=== PATIENT | female | born 1960 | race African-American/Black ===

== ENCOUNTER 2019-03-28 14:46 | Emergency (ER) | payer SELFPAY ==
[~2019-03-28 14:46] MED LIST: ISOVUE-370 76%-LOCM 1 ML ONE
[2019-03-28 16:13] LABS: Hemoglobin 14.6 g/dL (12.0-16.0); Mean Corpuscular HGB CONC 33.4 g/dL (32.0-36.0); Mean Corpuscular Hemoglobin 30.8 pg (27.0-31.0); Mean Corpuscular Volume 92.4 fL (78.0-98.0); Mean Platelet Volume 7.3 fL (7.4-10.4); Platelet Count 261 thou/uL (130-400); RBC Distribution Width 12.2 % (11.5-14.5); Red Blood Cell (RBC) Count 4.72 mill/uL (4.20-5.40)
[2019-03-28 16:27] LABS: Band 1 % (5-11); Lymphocytes 54 % (21-51); MDiff Complete? YES; Monocytes 2 % (0-10); Neutrophil 39 % (42-75); Platelet Morphology Comment Appears Adequate; RBC Morphology Normal; Reactive Lymphocytes 4 % (0-10)
[2019-03-28 16:32] LABS: ALT (SGPT) 12 U/L (8-55); AST (SGOT) 11 U/L (5-34); Albumin 4.1 g/dL (3.5-5.0); Alkaline Phosphatase 97 U/L (40-150); Anion Gap 12 mmol/L (10-20); BUN (Urea Nitrogen) 17 mg/dL (9.8-20.1); Bilirubin, Total 0.2 mg/dL (0.2-1.2); Calc. Creatinine Clearance 0 mL/min (70-130); Calcium 9.5 mg/dL (7.8-10.44); Carbon Dioxide 25 mmol/L (22-29); Chloride 108 mmol/L (98-107); Estimated GFR-MDRD 86; Globulin 2.9 g/dL (2.4-3.5); Glucose 81 mg/dL (70-105); Potassium 3.5 mmol/L (3.5-5.1); Sodium 141 mmol/L (136-145)
[2019-03-28 17:59] LABS: Bilirubin Negative (Negative); Blood, Urine Negative (Negative); Clarity CLEAR (Clear); Glucose, Urine (Dipstick) Negative (Negative); Leukocyte Negative (Negative); Nitrite Negative (Negative); Protein, Urine (Dipstick) Negative (Neg-Trace); Specific Gravity, Urine 1.024 (1.002-1.036); Urobilinogen 0.2 mg/dL (0.2-1.0)
--- NOTE | 2019-03-28 18:48 | CT ---
CT ABDOMEN AND PELVIS WITH IV CONTRAST 03/28/2019 CLINICAL INFORMATION: Right upper quadrant abdominal pain. Palpable abnormality. COMPARISON: None. Technique: Multiple contiguous axial CT images are obtained through the abdomen and pelvis with IV contrast. Cor onal reformatted images are provided. FINDINGS: Lower Chest: A calcified granuloma is present at the right lung base. Lung bases are otherwise clear. Vessels: Vascular calcifications and atherosclerotic plaque is seen involving the abdominal aorta and iliac arteries. Abdomen: Portal vein:Patent. Portions of the more peripheral hepatic veins in the right hepatic lobe are not w ell opacified. This may be attributable to phase of imaging as opposed to thrombosis of the peripheral hepatic veins, follow-up CT abdomen in portal venous phase imaging is recommended. Gallbladder: Within normal limits for CT imaging. Liver: A subcentimeter hypodense lesion is seen in the posterior segment right hepatic lobe statistic ally likely representing a cyst. There is a larger hypodense lesion seen in the left hepatic lobe near the dome of the liver which measures 2.6 cm and demonstrates an attenuation coefficient most com patible with a cyst. Pancreas: within normal limits. Spleen: Multiple calcified granulomata are present. Adrenals: within normal limits. Kidneys: There is a calcification seen in the region of the left splenic hilum, but this is not withi n the renal collecting system and may represent cortically-based calcification or possibly vascular calcification. Kidneys otherwise demonstrate a normal CT appearance for phase of imaging. Bowel: Normal caliber. Appendix: The appendix is visualized and normal in caliber. Peritoneum: There is prominent inflammatory stranding seen just superior and anterior to the urinary bladder and anterior to the uterus. Suggested small amount of fluid is also present in this region. Neoplastic process cannot be entirely excluded such as inflammatory carcinomatosis. No additional nod ularity or inflammatory changes are seen within the abdomen or pelvis, there is a tiny amount of fluid seen adjacent to the posterior aspect posterior segment right hepatic lobe in the region of Mor raquel's pouch. Mesentery and Retroperitoneum: No enlarged mesenteric or retroperitoneal lymph nodes. Abdominal Wall: within normal limits. Pelvis: Reproductive Organs: The uterus is enlarged and lobulated with a few scattered calcifications. Findin gs may be related to an enlarged uterus with multiple uterine fibroids. Low-density areas seen centrally within the uterus may represent small amount of fluid within the endometrial canal. Bladder: Incompletely distended but otherwise within normal limits. Bones: Degenerative changes are seen in the lumbar spine. IMPRESSION: 1. Inflammatory changes seen just anterior to the uterus. Exact etiology for the inflammatory changes is uncertain. This does not have typical appearance for fat necrosis. The transverse colon does extend inferiorly to the level of the pelvis, and these inflammatory changes are immediately adjacent to this region; however, there is no adjacent bowel wall thickening. While the exact etiology is uncertain, neoplastic process cannot be excluded. 2. Enlarged lobulated uterus likely related to uterus with multiple uterine fibroids some of which ar e partially calcified. There is suggestion of tiny amount of fluid within the endometrial canal which is abnormal in a postmenopausal female patient. Pelvic ultrasound may be helpful for further ev aluation. 3. Hepatic cysts. 4. Incomplete opacification of peripheral hepatic veins in the right hepatic lobe. This may be relate d to phase of imaging, but follow-up CT abdomen in portal venous phase imaging is recommended. 5. Above findings discussed with Cher Wolff nurse practitioner in the emergency department on at 1843 hours
[2019-03-28] MEDS ORDERED: Morphine 4 MG/ML VIAL ONE (19:31)
[2019-03-28] MEDS ORDERED: Ondansetron PF 4 MG/2 ML Vial ONE (19:31)
[2019-03-28] MEDS ORDERED: Labetalol HCl 100 MG/20 ML VIAL ONE (19:31)
--- NOTE | 2019-03-28 21:39 | ULT ---
Exam: Pelvic ultrasound HISTORY: Pelvic pain COMPARISON: CT abdomen and pelvis on 03/28/2019 TECHNIQUE: Multiple grayscale and color Doppler images were obtained in a transabdominal and transvag inal pelvic ultrasound. FINDINGS: CERVIX: Grossly within normal limits where visualized. UTERUS: Enlarged measuring 11.3 cm x 10.4 cm x 4 cm. The uterus demonstrates a lobulated contour and generalized heterogeneity with suggestion of a few heterogeneous masses although margins are difficult to adequately discerned. Largest mass measures approximately 9.7 cm within the posterior clifton dy of the uterus. ENDOMETRIAL STRIPE: The endometrial stripe is not well discerned on this examination likely related t o deformity from multiple uterine fibroids. There was a question of fluid within the region of the endometrial canal on the prior CT examination; although, necrosis involving a uterine fibroid is a po ssibility. No free fluid is present. RIGHT OVARY: Not visualized. LEFT OVARY:Not visualized. IMPRESSION: 1. Enlarged lobulated heterogeneous uterus with suggestion of heterogeneous masses throughout the aminta tesfaye. Findings are likely related to multiple uterine fibroids. 2. Nonvisualization of the bilateral ovaries.
== END 2019-03-28 22:22 | disposition home or self-care (01) ==
LOC: ERS 14:46
DX: R10.30 Lower abdominal pain, unspecified (principal); R10.11 Right upper quadrant pain; I10 Essential (primary) hypertension; F17.210 Nicotine dependence, cigarettes, uncomplicated
CPT/HCPCS: 36415; 74177; 76856; 80053; 81003; 85025; 96361; 96374; 96375; 96376; J2270; J2405; Q9966

== ENCOUNTER 2019-11-10 12:18 | Emergency (ER) | payer SELFPAY ==
[2019-11-10 13:04] LABS: Hemoglobin 16.1 g/dL (12.0-16.0); Mean Corpuscular HGB CONC 31.8 g/dL (32.0-36.0); Mean Corpuscular Hemoglobin 28.2 pg (27.0-31.0); Mean Corpuscular Volume 88.7 fL (78.0-98.0); Mean Platelet Volume 7.6 fL (7.4-10.4); Platelet Count 291 thou/uL (130-400); RBC Distribution Width 12.9 % (11.5-14.5); Red Blood Cell (RBC) Count 5.72 mill/uL (4.20-5.40)
--- NOTE | 2019-11-10 13:04 | RAD ---
EXAM: Chest 2 views: HISTORY: Chest pain and hypertension COMPARISON: None. FINDINGS: There is a normal-sized cardiomediastinal silhouette. There is no evidence of consolidation, mass, or pleural effusion. The bones are unremarkable. IMPRESSION: No evidence of acute cardiopulmonary disease
[2019-11-10 13:25] LABS: ALT (SGPT) 25 U/L (8-55); AST (SGOT) 25 U/L (5-34); Albumin 4.6 g/dL (3.5-5.0); Alkaline Phosphatase 101 U/L (40-110); Anion Gap 13 mmol/L (10-20); BUN (Urea Nitrogen) 20 mg/dL (9.8-20.1); Bilirubin, Total 0.4 mg/dL (0.2-1.2); CK (CPK) 87 U/L (29-168); Calc. Creatinine Clearance 0 mL/min (70-130); Calcium 10.1 mg/dL (7.8-10.44); Carbon Dioxide 29 mmol/L (22-29); Chloride 104 mmol/L (98-107); Estimated GFR-MDRD 85; Glucose 89 mg/dL (70-105); Protein, Total 7.6 g/dL (6.0-8.3); Sodium 142 mmol/L (136-145)
[2019-11-10 13:36] LABS: Band 1 % (5-11); Lymphocytes 49 % (21-51); MDiff Complete? YES; Monocytes 7 % (0-10); Neutrophil 40 % (42-75); Platelet Morphology Comment Appears Adequate; RBC Morphology Normal; Reactive Lymphocytes 3 % (0-10)
[2019-11-10] MEDS ORDERED: Ondansetron ODT 4 MG TAB ONE (16:17)
[2019-11-10] MEDS ORDERED: Aspirin Chewable 81 MG TAB ONE (16:17)
[2019-11-10] MEDS ORDERED: Nitroglycerin 2% Ointment 1 INCH/1 GM Packet ONE (16:17)
[2019-11-10 17:21] LABS: Bilirubin Negative (Negative); Blood, Urine Negative (Negative); Clarity Clear (Clear); Glucose, Urine (Dipstick) Normal (Negative); Leukocyte Negative Leu/uL (Negative); Nitrite Negative (Negative); Protein, Urine (Dipstick) Negative (Neg-Trace); Urobilinogen Normal mg/dL (Less than 2)
== END 2019-11-10 18:23 | disposition home or self-care (01) ==
LOC: ERS 12:18
DX: R10.13 Epigastric pain (principal); I10 Essential (primary) hypertension; D25.9 Leiomyoma of uterus, unspecified; F17.210 Nicotine dependence, cigarettes, uncomplicated
CPT/HCPCS: 36415; 71046; 80053; 81003; 82550; 83690; 84484; 85025; 93005; Q0162